=== PATIENT | male | born 1970 | race Caucasian/White ===

== ENCOUNTER 2022-03-14 11:38 | Emergency (ER) | payer BC ==
[2022-03-14] VITALS (19 sets, daily range): BP systolic 131–185; BP diastolic 64–94
[~2022-03-14] VITALS: Ht 175.3 cm; Wt 118.0 kg
[2022-03-14] MEDS ORDERED: LISINOPRIL10 MG PO (11:53)
[2022-03-14] MEDS ORDERED: HYDROCO/APAP1 T10 PO (15:13)
== END 2022-03-14 17:19 | disposition home or self-care (01) | DRG 552 ==
LOC: ED 11:38
DX: S32.019A Unspecified fracture of first lumbar vertebra, initial encounter for closed fracture (principal); W01.0XXA Fall on same level from slipping, tripping and stumbling without subsequent striking against object, initial encounter; I10 Essential (primary) hypertension; F17.200 Nicotine dependence, unspecified, uncomplicated